=== PATIENT | male | born 1955 | race Caucasian/White ===

== ENCOUNTER 2017-10-08 10:53 | Emergency (ER) | payer OTHER ==
--- NOTE | 2017-10-08 11:10 | CPEKG ---
Heart Rate: 75 RR Interval: 800 P-R Interval: 169 QRSD Interval: 96 QT Interval: 420 QTC Interval: 470 P [place]: 70 QRS [place]: 54 T Wave [place]: 35 EKG Severity - ABNORMAL ECG - EKG Impression: SINUS RHYTHM EKG Impression: MULTIPLE ATRIAL PREMATURE COMPLEXES EKG Impression: LOW VOLTAGE IN FRONTAL LEADS Electronically Signed By: Davey Ospina 08-Oct-2017 12:32:53
--- NOTE | 2017-10-08 12:33 | EDPHY ---
H & P Time Seen by Provider: 10/08/17 12:05 HPI/ROS: CHIEF COMPLAINT: Rapid heart rate HISTORY OF PRESENT ILLNESS: Patient states he has had"heart flutters my whole life"and was noted to have PACs when he had multiple orthopedic surgeries last year. They have since recently increased to about 3 times a week lasting 2-3 hours. He also has sleep apnea. Last night around 10:00 p.m. In his recliner he noticed his heart was racing at twice normal speed was able to fall sleep 90 min later. Today at 9:00 a.m. It happened again lasted about 2 hr and went to urgent care and referred here. Not associated with chest pain or near syncope or syncope. Not irregular. Not associated with shortness of breath or leg swelling but does cause some anxiety. Not better or worse with anything. REVIEW OF SYSTEMS: Eye: Gets"[place] stripes"in his vision every other month and thinks it might be due to low blood sugar, nothing today ENT: no sore throat Cardiac: No chest pain Pulmonary: no cough or SOB Abdomen: no vomiting, diarrhea, abdominal pain Musculoskeletal: No leg swelling Skin: no rash Neuro: no headache Constitutional: no fever : no urinary symptoms A comprehensive 10 point review of systems is otherwise negative aside from elements mentioned in the history of present illness. PAST MEDICAL HISTORY: Surgeries x3 on his shoulder and elbow x1 and last year, known PACs Social history: Nonsmoker, no drugs, here with his . No leg swelling or immobilization. Recently rode his bike hard with no symptoms. General Appearance: Alert and conversant, cooperative. Eyes: No scleral icterus. ENT, Mouth: Normal mucous membranes. Respiratory: Normal respiratory effort, breath sounds equal, lungs are clear to auscultation. Cardiovascular: Regular rate and rhythm. Frequent extrasystoles. Gastrointestinal: Abdomen is soft and non tender. Neurological: Alert, face symmetric, normal motor and sensory in extremities. Skin: Warm and dry, no rashes. Musculoskeletal: No peripheral edema. No calf tenderness. Psychiatric: Not agitated. Emergency Department course/MDM: Patient does not have symptoms of chest pain or syncope to suggest high risk for malignant dysrhythmia. Plan for cardiology outpatient follow-up for portable Holter monitoring and clinic follow-up. Labs to include troponin and electrolytes and TSH reviewed. 1325: Discussed with Cardiology will have him follow up in the office today for Holter monitor. Smoking Status: Never smoked Constitutional: Initial Vital Signs Temperature (C) 36.6 C 10/08/17 10:58 Heart Rate 79 10/08/17 10:58 Respiratory Rate 16 10/08/17 10:58 Blood Pressure 126/72 H 10/08/17 10:58 O2 Sat (%) 95 10/08/17 10:58 O2 Delivery Mode Room Air Allergies/Adverse Reactions: No Known Allergies Allergy (Unverified 10/08/17 11:02) Home Medications: Medication Instructions Recorded Aspirin 10/08/17 Medical Decision Making - Diagnostics EKG Interpretation: 12-lead EKG interpreted by me; official reading is in trace master. My interpretation is sinus rhythm with multiple PACs, otherwise normal. Differential Diagnosis: Differential considered including but not limited to malignant dysrhythmia, atrial fibrillation, SVT, sinus tachycardia. Consult/Admit Bed Type: [facility] at 1305 - Data Points Laboratory Results: Laboratory Results 10/08/17 11:20 10/08/17 11:20 10/08/17 10/08/17 10/08/17 11:26 11:20 11:20 WBC 5.56 10^3/uL 10^3/uL (3.80-9.50) RBC 4.67 10^6/uL 10^6/uL (4.40-6.38) Hgb 15.5 g/dL g/dL (13.7-17.5) Hct 45.3 % % (40.0-51.0) MCV 97.0 fL fL (81.5-99.8) MCH 33.2 pg pg (27.9-34.1) MCHC 34.2 g/dL g/dL (32.4-36.7) RDW 14.0 % % (11.5-15.2) Plt Count 261 10^3/uL 10^3/uL (150-400) MPV 11.6 fL fL (8.7-11.7) Neut % (Auto) 71.7 % % (39.3-74.2) Lymph % (Auto) 19.4 % % (15.0-45.0) [place] % (Auto) 6.3 % % (4.5-13.0) Eos % (Auto) 0.9 % % (0.6-7.6) Baso % (Auto) 1.3 % % (0.3-1.7) Nucleat RBC Rel Count 0.0 % % (0.0-0.2) Absolute Neuts (auto) 3.99 10^3/uL 10^3/uL (1.70-6.50) Absolute Lymphs (auto) 1.08 10^3/uL 10^3/uL (1.00-3.00) Absolute Monos (auto) 0.35 10^3/uL 10^3/uL (0.30-0.80) Absolute Eos (auto) 0.05 10^3/uL 10^3/uL (0.03-0.40) Absolute Basos (auto) 0.07 10^3/uL 10^3/uL (0.02-0.10) Absolute Nucleated RBC 0.00 10^3/uL 10^3/uL (0-0.01) Immature Gran % 0.4 % % (0.0-1.1) Immature Gran # 0.02 10^3/uL 10^3/uL (0.00-0.10) Sodium 139 mEq/L mEq/L (135-145) Potassium 4.3 mEq/L mEq/L (3.3-5.0) Chloride 104 mEq/L mEq/L (97-110) Carbon Dioxide 23 mEq/l mEq/l (22-31) Anion Gap 12 mEq/L mEq/L (8-16) BUN 17 mg/dL mg/dL (7-23) Creatinine 0.9 mg/dL mg/dL (0.7-1.3) Estimated GFR > 60 Glucose 92 mg/dL mg/dL (70-100) Calcium 8.8 mg/dL mg/dL (8.5-10.4) POC Troponin I 0.00 ng/mL ng/mL (0.00-0.08) TSH 0.602 uIU/mL uIU/mL (0.465-4.680) Point of Care Test Results: Chemistry 10/08/17 11:26 POC Troponin I 0.00 ng/mL ng/mL (0.00-0.08) Departure - Departure Disposition: Home, Routine, Self-Care Clinical Impression: Palpitations Condition: Good Instructions: Heart Palpitations (ED) Referrals: Cici Chen MD [Primary Care Provider] - As per Instructions Theresa Ewing PA [Physician Rrts] - As per Instructions (Go now to [facility], they are expecting you for 48 hour holter monitor; call the office number and ask for Theresa if any problems.)
[2017-10-08 13:01] LABS: PLATELET COUNT 261 10^3/uL (150-400)
[2017-10-08 13:29] VITALS: BP 132/78
== END 2017-10-08 13:28 | disposition home or self-care (01) ==
DX: R00.2 Palpitations (principal); Z79.82 Long term (current) use of aspirin
CPT/HCPCS: 84484-PO